=== PATIENT | male | born 2000 | race Caucasian/White ===

== ENCOUNTER 2022-05-23 11:58 | Inpatient (IN) | payer OTHER ==
[~2022-05-23] VITALS: Ht 180.3 cm; Wt 59.9 kg
[2022-05-23] MEDS ORDERED: FLUV50 PO (12:14)
[2022-05-23] MEDS ORDERED: MECO10005 PO (12:14)
[2022-05-23] MEDS ORDERED: PROP20TA18 PO (12:14)
[2022-05-23] MEDS ORDERED: CLON-592 PO (12:14)
[2022-05-23] MEDS ORDERED: ACETAMINOPHEN 325 MG TABLET PO PRN (13:15)
[2022-05-23] MEDS ORDERED: LORazepam 1 MG TABLET PO PRN (13:15)
[2022-05-23 13:39] LABS: COVID AG,FIA SOURCE NASAL SWAB
[2022-05-23] MEDS ORDERED: HALOPERIDOL 5 MG TABLET PO PRN (17:00)
[2022-05-23] MEDS ORDERED: ZOLPIDEM TARTRATE 10 MG TABLET PO PRN (17:00)
[2022-05-23] MEDS ORDERED: LORazepam 2 MG TABLET PO PRN (17:00)
[2022-05-23] MEDS ORDERED: INFLUENZA VIRUS VACCINE QVS 2022-23 (6MO+)/PF 60 MCG/0.5 ML SYRINGE IM. ONE (17:15)
[2022-05-23 19:30] VITALS: BP 112/73
[2022-05-24 08:10] VITALS: BP 125/73
[2022-05-24] MEDS ORDERED: CYAN500T56 PO (12:41)
[2022-05-24] MEDS ORDERED: TOPI50TA24 PO (12:41)
[2022-05-24] MEDS ORDERED: CloNIDine HCL 0.1 MG TABLET PO PRN (12:45)
[2022-05-24] MEDS ORDERED: IBUPROFEN 400 MG TABLET PO PRN (12:45)
[2022-05-24] MEDS ORDERED: GuaiFENesin/D-METHORPHAN [SUGAR-FREE] 200-20MG/10 ML SYRUP UDCUP PO PRN (12:45)
[2022-05-24] MEDS ORDERED: MAGNESIUM HYDROXIDE SUSPENSION 30 ML UDCUP PO PRN (12:45)
[2022-05-24] MEDS ORDERED: ACETAMINOPHEN 325 MG TABLET PO PRN (12:45)
[2022-05-24] MEDS ORDERED: PETROLATUM,WHITE 28 GM JELLY TP PRN (12:45)
[2022-05-24] MEDS ORDERED: ONDANSETRON HCL 4 MG TABLET PO PRN (12:45)
[2022-05-24] MEDS ORDERED: LOPERAMIDE HCL 2 MG CAPSULE PO PRN (12:45)
[2022-05-24] MEDS ORDERED: ALBUTEROL SULFATE HFA 90 MCG/PUFF 8 GM INHALER IH PRN (12:45)
[2022-05-24] MEDS ORDERED: DOCUSATE SODIUM 100 MG CAPSULE PO PRN (12:45)
[2022-05-24] MEDS ORDERED: MAG HYDROX/AL HYDROX/SIMETH ES 30 ML SUSPENSION UDCUP PO PRN (12:45)
[2022-05-24] MEDS ORDERED: NICOTINE 14 MG/24 HOUR PATCH TD PRN (12:45)
[2022-05-24] MEDS: QUEtiapine FUMARATE 100 MG TABLET PO SCH (17:00)
[2022-05-24 20:13] VITALS: BP 103/55
[2022-05-24] MEDS: FluvoxaMINE MALEATE 50 MG TABLET PO SCH (21:26)
[2022-05-25 06:12] VITALS: BP 100/63
[2022-05-25 08:53] VITALS: BP 125/70
[2022-05-25] MEDS: MULTIVITAMINS WITH MINERALS, THERAPEUTIC TABLET PO SCH (09:00)
[2022-05-25] MEDS: THIAMINE 100 MG TABLET PO SCH (09:00)
[2022-05-25] MEDS: FluvoxaMINE MALEATE 50 MG TABLET PO SCH ×2 (09:00→17:00)
[2022-05-25] MEDS: QUEtiapine FUMARATE 100 MG TABLET PO SCH ×2 (09:00→17:00)
[2022-05-25 20:58] VITALS: BP 98/64
[2022-05-26 08:17] VITALS: BP 119/83
[2022-05-26] MEDS: QUEtiapine FUMARATE 100 MG TABLET PO SCH ×2 (09:00→17:00)
[2022-05-26] MEDS: MULTIVITAMINS WITH MINERALS, THERAPEUTIC TABLET PO SCH (09:00)
[2022-05-26] MEDS: THIAMINE 100 MG TABLET PO SCH (09:00)
[2022-05-26] MEDS: MEGESTROL ACETATE 40 MG TABLET PO SCH ×2 (09:00→17:00)
[2022-05-26] MEDS: FluvoxaMINE MALEATE 50 MG TABLET PO SCH ×2 (09:00→17:00)
[2022-05-26 20:45] VITALS: BP 136/65
[2022-05-27] VITALS: BP 111/68
[2022-05-27] MEDS: MEGESTROL ACETATE 40 MG TABLET PO SCH ×2 (09:00→17:00)
[2022-05-27] MEDS: THIAMINE 100 MG TABLET PO SCH (09:00)
[2022-05-27] MEDS: QUEtiapine FUMARATE 100 MG TABLET PO SCH ×2 (09:00→17:00)
[2022-05-27] MEDS: MULTIVITAMINS WITH MINERALS, THERAPEUTIC TABLET PO SCH (09:00)
[2022-05-27] MEDS: FluvoxaMINE MALEATE 50 MG TABLET PO SCH ×2 (09:00→17:00)
[2022-05-27 20:48] VITALS: BP 136/60
[2022-05-28 08:06] LABS: GLUCOMETER DEV NAME(LOC) POC.BV
[2022-05-28 08:21] VITALS: BP 96/65
[2022-05-28] MEDS: FluvoxaMINE MALEATE 50 MG TABLET PO SCH ×2 (09:00→16:58)
[2022-05-28] MEDS: MEGESTROL ACETATE 40 MG TABLET PO SCH ×2 (09:00→16:58)
[2022-05-28] MEDS: THIAMINE 100 MG TABLET PO SCH (09:00)
[2022-05-28] MEDS: MULTIVITAMINS WITH MINERALS, THERAPEUTIC TABLET PO SCH (09:00)
[2022-05-28] MEDS: QUEtiapine FUMARATE 100 MG TABLET PO SCH ×2 (09:00→16:58)
[2022-05-28 12:15] VITALS: BP 105/68
[2022-05-28 20:21] VITALS: BP 118/71
[2022-05-29 08:21] VITALS: BP 139/82
[2022-05-29] MEDS: MEGESTROL ACETATE 40 MG TABLET PO SCH ×2 (09:00→16:22)
[2022-05-29] MEDS: QUEtiapine FUMARATE 100 MG TABLET PO SCH ×2 (09:00→16:22)
[2022-05-29] MEDS: MULTIVITAMINS WITH MINERALS, THERAPEUTIC TABLET PO SCH (09:00)
[2022-05-29] MEDS: THIAMINE 100 MG TABLET PO SCH (09:00)
[2022-05-29] MEDS: FluvoxaMINE MALEATE 50 MG TABLET PO SCH ×2 (09:00→16:22)
[2022-05-29 20:17] VITALS: BP 113/78
[2022-05-30 08:24] VITALS: BP 115/66
[2022-05-30] MEDS: FluvoxaMINE MALEATE 50 MG TABLET PO SCH ×3 (08:37→17:00)
[2022-05-30] MEDS: MEGESTROL ACETATE 40 MG TABLET PO SCH ×3 (08:37→17:00)
[2022-05-30] MEDS: ARIPiprazole 5 MG TABLET PO SCH (08:43)
[2022-05-30] MEDS: THIAMINE 100 MG TABLET PO SCH (09:00)
[2022-05-30] MEDS: MULTIVITAMINS WITH MINERALS, THERAPEUTIC TABLET PO SCH (09:00)
[2022-05-30 20:54] VITALS: BP 100/101
[2022-05-31 07:36] LABS: BASOPHILS % (AUTO) 0.8 % (0.0-2.0); EOSINOPHILS % (AUTO) 0.6 % (1.0-6.0); HEMATOCRIT 41.1 % (41-53); HEMOGLOBIN 14.9 g/dL (13.5-17.5); LYMPHOCYTES # (AUTO) 1.8 K/uL (1.0-4.8); LYMPHOCYTES % (AUTO) 50.8 % (22.0-44.0); MEAN CORPUSCULAR HEMOGLOBIN 30.7 pg (26.0-34.0); MEAN CORPUSCULAR HGB CONC 36.3 G/dL (31.0-37.0); MEAN CORPUSCULAR VOLUME 85 fL (80-100); MONOCYTES # (AUTO) 0.2 K/uL (0.1-1.0); MONOCYTES % (AUTO) 7.1 % (2.0-9.0); NEUTROPHILS # (AUTO) 1.4 K/uL (1.8-7.7); NEUTROPHILS % (AUTO) 40.7 % (40.0-70.0); PLATELET COUNT (AUTO) 129 K/uL (150-450); RED BLOOD CELL COUNT(AUTO) 4.86 MIL/uL (4.50-5.90); RED CELL DISTRIBUTION WIDTH 12.9 % (11.5-14.5)
[2022-05-31 08:32] LABS: ALANINE AMINOTRANSFERASE 29 U/L (12-78); ALBUMIN 4.2 g/dL (3.4-5.0); ALKALINE PHOSPHATASE 92 U/L (46-116); ANION GAP 9 mmol/L (8-16); ASPARTATE AMINOTRANSFERASE 18 U/L (15-37); BILIRUBIN,TOTAL 1.1 mg/dL (0.1-1.0); CALCIUM, TOTAL 9.6 mg/dL (8.8-10.5); CARBON DIOXIDE 31 mmol/L (22-29); CHLORIDE 97 mmol/L (98-107); CHOL/HDL RATIO 1.9 (4.2-7.3); CHOLESTEROL 128 mg/dL (131-200); CREATININE 0.97 mg/dL (0.60-1.30); FREE T4 (FREE THYROXINE) 1.38 ng/dL (0.76-1.46); GLUCOSE,RANDOM 78 mg/dL (70-110); HDL CHOLESTEROL 66 mg/dL (40-60); LDL CHOL (CALC.) 52 mg/dL (0-130); PHOSPHORUS 4.4 mg/dL (2.5-4.9); POTASSIUM 3.1 mmol/L (3.5-5.1); SODIUM SERUM 137 mmol/L (136-145); THYROID STIMULATING HORMONE 1.77 uIU/mL (0.36-3.74); TOTAL PROTEIN, SERUM 7.3 g/dL (6.4-8.2); TRIGLYCERIDES 52 mg/dL (15-150); UREA NITROGEN, BLOOD 10 mg/dL (7-18)
[2022-05-31 08:33] LABS: GLOMERULAR FILTR. RATE CALC > 60 mL/min (>60)
[2022-05-31 08:51] VITALS: BP 97/59
[2022-05-31] MEDS: ARIPiprazole 5 MG TABLET PO SCH (09:00)
[2022-05-31] MEDS: MULTIVITAMINS WITH MINERALS, THERAPEUTIC TABLET PO SCH (09:00)
[2022-05-31] MEDS: FluvoxaMINE MALEATE 50 MG TABLET PO SCH ×2 (09:00→16:30)
[2022-05-31] MEDS: MEGESTROL ACETATE 40 MG TABLET PO SCH ×2 (09:00→16:31)
[2022-05-31] MEDS: THIAMINE 100 MG TABLET PO SCH (09:00)
[2022-05-31 09:19] LABS: HEMOGLOBIN A1C 4.6 % (3.8-5.6)
[2022-05-31 20:33] VITALS: BP 102/67
[2022-06-01 08:38] VITALS: BP 112/78
[2022-06-01] MEDS: MEGESTROL ACETATE 40 MG TABLET PO SCH ×2 (09:00→17:00)
[2022-06-01] MEDS: THIAMINE 100 MG TABLET PO SCH (09:00)
[2022-06-01] MEDS: FluvoxaMINE MALEATE 50 MG TABLET PO SCH ×2 (09:00→17:00)
[2022-06-01] MEDS: MULTIVITAMINS WITH MINERALS, THERAPEUTIC TABLET PO SCH (09:00)
[2022-06-01] MEDS: ARIPiprazole 5 MG TABLET PO SCH (09:00)
[2022-06-01 20:21] VITALS: BP 113/59
[2022-06-02 08:32] VITALS: BP 119/76
[2022-06-02] MEDS: MULTIVITAMINS WITH MINERALS, THERAPEUTIC TABLET PO SCH (09:00)
[2022-06-02] MEDS: ARIPiprazole 5 MG TABLET PO SCH (09:00)
[2022-06-02] MEDS: MEGESTROL ACETATE 40 MG TABLET PO SCH ×2 (09:00→16:38)
[2022-06-02] MEDS: THIAMINE 100 MG TABLET PO SCH (09:00)
[2022-06-02] MEDS ORDERED: POTASSIUM CHLORIDE 20 MEQ ER TABLET PO ONE (09:00)
[2022-06-02] MEDS: FluvoxaMINE MALEATE 50 MG TABLET PO SCH ×2 (09:00→16:37)
[2022-06-02] MEDS: POTASSIUM CHLORIDE 20 MEQ ER TABLET PO ONE ×2 (11:19→12:25)
[2022-06-02] MEDS ORDERED: POTASSIUM CHLORIDE 10% 40 MEQ/30 ML LIQUID UDCUP PO ONE (12:15)
[2022-06-02 22:29] VITALS: BP 116/67
[2022-06-03] MEDS: MULTIVITAMINS WITH MINERALS, THERAPEUTIC TABLET PO SCH (09:00)
[2022-06-03] MEDS: THIAMINE 100 MG TABLET PO SCH (09:00)
[2022-06-03] MEDS: MEGESTROL ACETATE 40 MG TABLET PO SCH ×2 (09:00→16:43)
[2022-06-03] MEDS: ARIPiprazole 5 MG TABLET PO SCH (09:00)
[2022-06-03] MEDS: FluvoxaMINE MALEATE 50 MG TABLET PO SCH ×2 (09:00→16:43)
[2022-06-03 09:14] VITALS: BP 108/67
[2022-06-03 20:26] VITALS: BP 111/62
[2022-06-04 08:59] VITALS: BP 121/64
[2022-06-04] MEDS: MULTIVITAMINS WITH MINERALS, THERAPEUTIC TABLET PO SCH (09:00)
[2022-06-04] MEDS: THIAMINE 100 MG TABLET PO SCH (09:00)
[2022-06-04] MEDS: MEGESTROL ACETATE 40 MG TABLET PO SCH ×2 (09:00→16:19)
[2022-06-04] MEDS: ARIPiprazole 5 MG TABLET PO SCH (09:00)
[2022-06-04] MEDS: FluvoxaMINE MALEATE 50 MG TABLET PO SCH ×2 (09:00→16:19)
[2022-06-04 11:46] LABS: GLUCOMETER DEV NAME(LOC) POC.BV
[2022-06-04 20:52] VITALS: BP 108/67
[2022-06-05 08:15] VITALS: BP 118/67
[2022-06-05] MEDS: MULTIVITAMINS WITH MINERALS, THERAPEUTIC TABLET PO SCH (09:00)
[2022-06-05] MEDS: FluvoxaMINE MALEATE 50 MG TABLET PO SCH ×2 (09:00→17:00)
[2022-06-05] MEDS: MEGESTROL ACETATE 40 MG TABLET PO SCH ×2 (09:00→17:00)
[2022-06-05] MEDS: THIAMINE 100 MG TABLET PO SCH (09:00)
[2022-06-05] MEDS: ARIPiprazole 5 MG TABLET PO SCH (09:00)
[2022-06-05 20:24] VITALS: BP 115/71
[2022-06-06 08:25] VITALS: BP 127/66
[2022-06-06] MEDS: MEGESTROL ACETATE 40 MG TABLET PO SCH ×2 (09:00→17:00)
[2022-06-06] MEDS: ARIPiprazole 5 MG TABLET PO SCH (09:00)
[2022-06-06] MEDS: MULTIVITAMINS WITH MINERALS, THERAPEUTIC TABLET PO SCH (09:00)
[2022-06-06] MEDS: THIAMINE 100 MG TABLET PO SCH (09:00)
[2022-06-06] MEDS: FluvoxaMINE MALEATE 50 MG TABLET PO SCH ×2 (09:00→17:00)
[2022-06-06 21:33] VITALS: BP 97/65
[2022-06-07 08:33] VITALS: BP 104/64
[2022-06-07] MEDS: MULTIVITAMINS WITH MINERALS, THERAPEUTIC TABLET PO SCH (08:46)
[2022-06-07] MEDS: MEGESTROL ACETATE 40 MG TABLET PO SCH ×2 (08:46→16:43)
[2022-06-07] MEDS: THIAMINE 100 MG TABLET PO SCH (08:46)
[2022-06-07] MEDS: ARIPiprazole 5 MG TABLET PO SCH (08:46)
[2022-06-07] MEDS: FluvoxaMINE MALEATE 50 MG TABLET PO SCH ×2 (08:46→16:43)
[2022-06-07 22:07] VITALS: BP 117/70
[2022-06-08 08:25] VITALS: BP 100/71
[2022-06-08] MEDS: MEGESTROL ACETATE 40 MG TABLET PO SCH ×2 (09:00→16:57)
[2022-06-08] MEDS: FluvoxaMINE MALEATE 50 MG TABLET PO SCH ×2 (09:00→16:57)
[2022-06-08] MEDS: MULTIVITAMINS WITH MINERALS, THERAPEUTIC TABLET PO SCH (09:00)
[2022-06-08] MEDS: ARIPiprazole 5 MG TABLET PO SCH (09:00)
[2022-06-08] MEDS: THIAMINE 100 MG TABLET PO SCH (09:00)
[2022-06-08 20:25] VITALS: BP 104/64
[2022-06-09 08:26] VITALS: BP 111/58
[2022-06-09] MEDS: FluvoxaMINE MALEATE 50 MG TABLET PO SCH ×2 (09:00→16:39)
[2022-06-09] MEDS: ARIPiprazole 5 MG TABLET PO SCH (09:00)
[2022-06-09] MEDS: MEGESTROL ACETATE 40 MG TABLET PO SCH ×2 (09:00→16:39)
[2022-06-09] MEDS: THIAMINE 100 MG TABLET PO SCH (09:00)
[2022-06-09] MEDS: MULTIVITAMINS WITH MINERALS, THERAPEUTIC TABLET PO SCH (09:00)
[2022-06-10 08:57] VITALS: BP 111/64
[2022-06-10] MEDS: ARIPiprazole 5 MG TABLET PO SCH (09:00)
[2022-06-10] MEDS: MULTIVITAMINS WITH MINERALS, THERAPEUTIC TABLET PO SCH (09:00)
[2022-06-10] MEDS: MEGESTROL ACETATE 40 MG TABLET PO SCH ×2 (09:00→16:54)
[2022-06-10] MEDS: FluvoxaMINE MALEATE 50 MG TABLET PO SCH ×2 (09:00→16:54)
[2022-06-10] MEDS: THIAMINE 100 MG TABLET PO SCH (09:00)
[2022-06-10 23:00] VITALS: BP 105/65
[2022-06-11 08:36] VITALS: BP 115/69
[2022-06-11] MEDS: ARIPiprazole 5 MG TABLET PO SCH (08:56)
[2022-06-11] MEDS: FluvoxaMINE MALEATE 50 MG TABLET PO SCH ×2 (08:56→17:00)
[2022-06-11] MEDS: MULTIVITAMINS WITH MINERALS, THERAPEUTIC TABLET PO SCH (08:57)
[2022-06-11] MEDS: THIAMINE 100 MG TABLET PO SCH (08:57)
[2022-06-11] MEDS: MEGESTROL ACETATE 40 MG TABLET PO SCH ×2 (08:57→17:00)
[2022-06-11 15:51] LABS: GLUCOMETER DEV NAME(LOC) POC.BV
[2022-06-11 20:49] VITALS: BP 124/67
[2022-06-12] MEDS ORDERED: ARIP5TAB37 PO (05:30)
[2022-06-12] MEDS ORDERED: MULT-1239 PO (05:30)
[2022-06-12] MEDS ORDERED: MEGE40TA8 PO (05:30)
[2022-06-12] MEDS ORDERED: FLUV50 PO (05:30)
[2022-06-12 08:46] VITALS: BP 122/75
[2022-06-12] MEDS: THIAMINE 100 MG TABLET PO SCH (09:00)
[2022-06-12] MEDS: MULTIVITAMINS WITH MINERALS, THERAPEUTIC TABLET PO SCH (09:00)
[2022-06-12] MEDS: MEGESTROL ACETATE 40 MG TABLET PO SCH ×2 (09:00→17:00)
[2022-06-12] MEDS: ARIPiprazole 5 MG TABLET PO SCH (09:00)
[2022-06-12] MEDS: FluvoxaMINE MALEATE 50 MG TABLET PO SCH ×2 (09:00→17:00)
== END 2022-06-12 14:00 | DRG 885 ==
LOC: EMS 12:02 → B2S 15:25
PROVIDERS: ADMIT Psychiatry & Neurology Psychiatry; ATTEND Psychiatry & Neurology Psychiatry
DX: F33.3 Major depressive disorder, recurrent, severe with psychotic symptoms (principal); R45.851 Suicidal ideations; G12.21 Amyotrophic lateral sclerosis; F84.0 Autistic disorder; F42.9 Obsessive-compulsive disorder, unspecified; I95.9 Hypotension, unspecified; F94.0 Selective mutism; G47.00 Insomnia, unspecified; Z20.822 Contact with and (suspected) exposure to COVID-19; Z91.14 Patient's other noncompliance with medication regimen; Z59.00 Homelessness unspecified; Z79.899 Other long term (current) drug therapy
CPT/HCPCS: 80053; 80061; 83036; 83735; 84100; 84439; 84443; 85025; 87081; 99285